=== PATIENT | male | born 1945 | race African-American/Black ===

== ENCOUNTER 2021-01-09 04:31 | Inpatient (IN) | payer OTHER ==
[2021-01-09] VITALS (54 sets, daily range): BP systolic 62–172; BP diastolic 33–87
[~2021-01-09] VITALS: Ht 182.9 cm; Wt 68.9 kg
[~2021-01-09 04:31] MED LIST: ACETAMINOPHEN325 M1 PO; BENAZEPRIL HCL40 MG; COLACE 100 MG100 MG PO; COLACE100 MG PO; DOXYCYCLINE 10100 MG PO; ENDOCET 10-6501 EACH PO; HYDROCODON-ACE1 EAC7 PO; MIRALAX17 GM PO; NORVASC 5 MG TAB5 MG PO; OXYCODONE20 MG/1 M1; OXYCONTIN10 MG PO; SENNA PO; TESSALON PERLE100 MG PO; ULTRAM 50MG TAB50 MG PO; ZPAK PO
[2021-01-09 04:59] LABS: BE(vivo) -5.5 mmol/L (-2 to +3); HCO3 20.1 mmol/L (22.0-26.0); PCO2 39.4 mmHg (35.0-45.0); PO2 65.7 mmHg (80.0-100.0); sO2 91.6 % (92.0-98.0)
[2021-01-09 05:00] LABS: pH 7.325 (7.360-7.450)
[2021-01-09 05:06] LABS: ABSOLUTE NEUTROPHILS 16.4 thou/uL (1.4-8.2); BASOPHILS 0.6 % (0.0-2.0); EOSINOPHILS 0.3 % (0.0-3.0); HEMATOCRIT 38.6 % (42.0-52.0); HEMOGLOBIN 12.8 gm/dL (14.0-18.0); LYMPHOCYTES 11.3 % (24.0-44.0); MCHC 33.1 g/dL (28.0-37.0); MCV 87.7 fL (80.0-100.0); MONOCYTES 2.6 % (1.0-8.0); PLATELET COUNT 253 thou/uL (150-400); POLYS 85.2 % (36.0-66.0); RBC 4.39 mil/uL (4.50-6.00); RDW 18.1 % (10.5-14.5); WBC 19.3 thou/uL (4.0-11.0)
[2021-01-09 05:16] LABS: CALCIUM 8.9 mg/dL (8.5-10.1); CREATININE 0.9 mg/dL (0.7-1.3)
[2021-01-09 05:26] LABS: ALBUMIN 2.9 g/dL (3.4-5.0); TOTAL BILIRUBIN 2.2 mg/dL (0.2-1.0); TOTAL PROTEIN 7.3 g/dL (6.4-8.2)
[2021-01-09 05:41] LABS: APTT 23.6 Seconds (24.5-32.8); D-DIMER 5.76 ug/mLFEU (0.19-0.50); INR 1.1; PROTIME 11.9 Seconds (10.5-12.1)
[2021-01-09 06:24] LABS: URINE BILIRUBIN NEGATIVE (Negative); URINE BLOOD NEGATIVE (Negative); URINE CLARITY CLEAR; URINE COLOR YELLOW; URINE GLUCOSE-RANDOM* NEGATIVE (Negative); URINE KETONES NEGATIVE (Negative); URINE LEUKOCYTES-REFLEX NEGATIVE (Negative); URINE NITRITE-REFLEX NEGATIVE (Negative); URINE PROTEIN (DIPSTICK) TRACE (Negative)
[2021-01-09 07:09] LABS: BE(vivo) -2.9 mmol/L (-2 to +3); HCO3 23.2 mmol/L (22.0-26.0); PCO2 45.8 mmHg (35.0-45.0); PO2 231.4 mmHg (80.0-100.0); sO2 99.4 % (92.0-98.0)
[2021-01-09 07:10] LABS: pH 7.322 (7.360-7.450)
--- NOTE | 2021-01-09 07:36 | EKG ---
[address] [place] [address] ELECTROCARDIOGRAM REPORT Name: YISEL RASCON Room #: 170-8 ADM IN M.R.#: [id number] Admission: 01/09/21 Attend Phys: Manule Hunter MD Discharge: Date of : 43 Report #: [id number] [facility] ED Test Date: 2021-01-09 Test Time: 06:56:37 Pat Name: YISEL RASCON Department: Room: 170 Gender: M Senior Ssis Developer: STEPHANIE : 1945 Requested By: Ben Azar Order Number: [id number] MD: Jaspreet Harper Measurements Intervals [place] Rate: 103 P: 45 SD: 107 QRS: -6 QRSD: 81 T: 33 QT: 346 QTc: 453 Interpretive Statements Sinus tachycardia Probable left atrial enlargement Abnormal R-wave progression, early transition Borderline T wave abnormalities Baseline wander in lead(s) V3 Compared to ECG 04/02/2015 23:16:28 Sinus rhythm no longer present T-wave abnormality still present Electronically Signed On 01-09-2021 7:35:55 CDT by Jaspreet Harper [email or web address] <ELECTRONICALLY SIGNED> By: Jaspreet Harper MD, FAC 01/09/21 0735 [id number] Jaspreet Harper MD, [facility] /EPI
[2021-01-09 09:49] LABS: CALCIUM 8.3 mg/dL (8.5-10.1); CREATININE 0.8 mg/dL (0.7-1.3); POTASSIUM 4.3 mmol/L (3.5-5.1)
--- NOTE | 2021-01-09 12:53 | NUR ---
VAT CONSULTED FOR CVL PLACEMENT. 6 FR LEFT IJ TL JACC PLACED. ALL LUMENS FLUSH AND RETURN BLOOD. PT INTUBATED/SEDATED, BUT TOLERATED WELL. LOT NUMBER [id number]. AWAITING CXR FOR TIP LOCATION CONFIRMATION.
--- NOTE | 2021-01-09 13:21 | 2DMMODE ---
[facility] [place] [address] 2 D/M-MODE ECHOCARDIOGRAM Name: YISEL RASCON Room #: 247-P ADM IN M.R.#: [id number] Admission: 01/09/21 Attend Phys: Dario Coley MD Discharge: Date of : 43 Report #: [id number] THIS REPORT FOR: cc: [facility] - Clinic physician unknown [facility] - Clinic physician unknown Felipe Suazo MD ~ APPROVED REPORT Study performed: 01/09/2021 11:37:09 EXAM: Comprehensive 2D, Doppler, and color-flow Echocardiogram Patient Location: ICU Room #: 247 Status: routine BSA: 1.91 HR: 85 bpm BP: 75/41 mmHg Rhythm: NSR Other Information Study Quality: Adequate Indications Dyspnea 2D Dimensions IVC: 16.00 mm Volumes Left Atrial Volume (Systole) Single Plane 4CH: 41.02 mL Single Plane 2CH: 22.92 mL LA ESV Index: 18.00 mL/m2 Aortic Valve AoV Peak Seymour.: 1.69 m/s AO Peak Gr.: 11.40 mmHg LVOT Max P.22 mmHg LVOT Max V: 1.14 m/s AI Vmax: 3.64 m/s AI Potter: 1.86 m/s2 AI PHT: 569.26 ms Mitral Valve E/A Ratio: 0.7 MV Decel. Time: 393.14 ms [facility] [address] [place] [address] 2 D/M-MODE ECHOCARDIOGRAM Name: YISEL RASCON Room #: 247-P ADM IN M.R.#: [id number] Admission: 01/09/21 Attend Phys: Dario Coley MD Discharge: Date of : 43 Report #: [id number] MV E Max Seymour.: 0.41 m/s MV A Seymour.: 0.61 m/s MV PHT: 114.01 ms IVRT: 133.79 ms Pulmonary Valve PV Peak Seymour.: 0.92 m/s PV Peak Gr.: 3.40 mmHg Pulmonary Vein P Vein S: 0.33 m/s P Vein A: 0.36 m/s P Vein D: 0.31 m/s P Vein A Dur.: 143.0 msec P Vein S/D Ratio: 1.06 Tricuspid Valve TR Peak Seymour.: 4.03 m/s TR Peak Gr.: 64.94 mmHg PA Pressure: 75.00 mmHg Left Ventricle The left ventricle is normal size. There is normal LV segmental wall motion. Borderline concentric left ventricular hypertrophy. The left ventricular systolic function is normal. The left ventricular ejection fraction is within the normal range. LVEF is 60-65%. Grade I - abnormal relaxation pattern. Right Ventricle The right ventricle is normal size. The right ventricular systolic function is normal. Atria The left atrium size is normal. The right atrium size is normal. Aortic Valve The aortic valve is normal in structure. Mild to moderate aortic regurgitation. There is no aortic valvular stenosis. Mitral Valve The mitral valve is normal in structure. Trace mitral regurgitation. No evidence of mitral valve stenosis. Tricuspid Valve The tricuspid valve is normal in structure. There is mild tricuspid regurgitation. Estimated PAP 75 mmHg. There is severe pulmonary hypertension. [facility] [address] [place] [address] 2 D/M-MODE ECHOCARDIOGRAM Name: YISEL RASCON Room #: 247-P [facility] IN [facility].#: [id number] Admission: 01/09/21 Attend Phys: Dario Coley MD Discharge: Date of : 43 Report #: [id number] Pulmonic Valve The pulmonary valve is normal in structure. There is no pulmonic valvular regurgitation. Great Vessels The aortic root is normal in size. IVC is normal in size and collapses <50% with inspiration. Pericardium There is no pericardial effusion. <Conclusion> The left ventricle is normal size. The left ventricular systolic function is normal. Grade I - abnormal relaxation pattern. The right ventricle is normal size. The left atrium size is normal. Mild to moderate aortic regurgitation. Trace mitral regurgitation. There is mild tricuspid regurgitation. Estimated PAP 75 mmHg. There is severe pulmonary hypertension. <ELECTRONICALLY SIGNED> By: Felipe Suazo MD 01/09/21 1321 132 1321 Felipe Suazo MD /[place]
--- NOTE | 2021-01-09 17:45 | NUR ---
RADIOLOGY REPORT LEFT IJ TIP OVERLIES BRACHIOCEPHALIC. WHEN THIS RN IN ROOM EARLIER, COULD NOT TURN HEAD LEFT TO ASSESS RIGHT. PT RESISTED. VERY STRONG. ATTEMPTED RIGHT BRACHIAL PICC. UNABLE TO THREAD CORRECTLY. UNABLE TO VISUALIZE PEAKED P WAVES AND NO BLOOD RETURN UNLESS PULLED BACK 4CM. TAYLOR RN HAS BEEN TITRATING NOREPI AND TURNED OFF. DID NOT HAVE ML KIT ON US CART. LEFT FOREARM PIV STARTED, DOCUMENTED.
[2021-01-10] VITALS (62 sets, daily range): BP systolic 82–157; BP diastolic 48–76
--- NOTE | 2021-01-10 01:48 | NUR ---
ASSUMED CARE AT 1900. PT AFEBRILE, WAKES UP EASILY THROUGH SEDATION AGITATED BUT NOT FOLLOWING COMMANDS, RELAXES ONCE NO LONGER STIMULATED. SMALL DOSE LEVO GTT INFUSING, VERSED AND FENTANYL FOR VENT MANAGEMENT. REPORT GIVEN ON PT AT 0100, PT IN STABLE CONDITION AT HAND OFF.
[2021-01-10 04:58] LABS: BASOPHILS 0.3 % (0.0-2.0); HEMATOCRIT 34.1 % (42.0-52.0); HEMOGLOBIN 11.1 gm/dL (14.0-18.0); LYMPHOCYTES 8.7 % (24.0-44.0); MCH 28.9 pg (26.0-34.0); MCHC 32.6 g/dL (28.0-37.0); MCV 88.7 fL (80.0-100.0); MONOCYTES 1.8 % (1.0-8.0); POLYS 89.2 % (36.0-66.0); RBC 3.85 mil/uL (4.50-6.00); RDW 17.5 % (10.5-14.5); WBC 6.7 thou/uL (4.0-11.0)
--- NOTE | 2021-01-10 05:16 | HC ---
[facility] [place] [address] [place] [address] CONSULTATION Name: YISEL RASCON Room #: 247-P ADM IN M.R.#: [id number] Admission: 01/09/21 Attend Phys: Dario Coley MD Discharge: Date of : 43 Report #: [id number] THIS REPORT FOR: cc: [facility] - Clinic physician unknown [facility] - Clinic physician unknown Issac Trevino MD ~ DATE OF SERVICE: 01/09/2021 INFECTIOUS DISEASE CONSULTATION ATTENDING PHYSICIAN: Dr. Coley. REASON FOR EVALUATION: Severe pneumonitis complicated by respiratory failure. HISTORY OF PRESENT ILLNESS: Chart was reviewed. The patient was examined. A 75-year-old gentleman who is sedated and maintained on ventilatory support at this point. History obtained from the hospital record. Apparently he was recently hospitalized with pneumonia, discharged within the last few days, had developed acute worsening in his dyspnea as well as some chest pain overnight, was brought initially required CPAP. Subsequently, short period of time, was intubated. Initial ABG: pH 7.325, pCO2 of 39.4, pO2 of 65.7, is on 100%, and respiratory rate of 47. Initial white count was elevated at 19.3. Lactic acid 4.0, subsequently improved to 1.5. CT of the abdomen and pelvis, chest former was noted a thickened bladder, the latter showed diffuse pneumonitis. No evidence of pulmonary embolus. Urinalysis was generally unremarkable as well. Due to the severity of his illness, he was initiated on empiric antibiotics with cefepime, Levaquin with dose of Zosyn as well. He is not responsive at this point, undergoing echo evaluation, has required some low dose pressor support as well. ALLERGIES: LISTED TO TYLENOL. CURRENT MEDICINES: Include Levaquin, methylprednisolone, Zosyn, norepinephrine, enoxaparin, famotidine. PAST MEDICAL HISTORY: History of hepatitis C, renal lithiasis, recent pneumonia. SOCIAL HISTORY: Former smoker, past ethanol, no illicit drug use. FAMILY HISTORY: Noncontributory. REVIEW OF SYSTEMS: Not obtainable. PHYSICAL EXAMINATION: GENERAL: He appears chronically ill, undernourished. He is sedated, continue [facility] [address] [place] [address] CONSULTATION Name: YISEL RASCON Room #: 247-P [facility] IN M.R.#: [id number] Admission: 01/09/21 Attend Phys: Dario Coley MD Discharge: Date of : 43 Report #: [id number] on dialysis port in a supine position. ET and OG tube in place. VITAL SIGNS: Temperature 98.1, pulse 99, respirations 24, blood pressure 105/59. SKIN: Warm, dry. HEENT: Normocephalic. LUNGS: Scattered coarse breath sounds. HEART: Borderline tachycardic, it is regular, do not appreciate a murmur. ABDOMEN: Taut distended, somewhat firm. He does react perhaps with some grimacing. GENITOURINARY AND RECTAL: Deferred. LABORATORY DATA: Electrolytes: Sodium 135, potassium 4.3, chloride 104, bicarbonate is 22, anion gap of 9, BUN and creatinine 16 and 0.8. Lactic acid 1.5. CT abdomen and pelvis showed diffuse thickened bladder wall. CT of the chest showed no evidence of PE, interstitial fibrosis and superimposed infiltrates, question of pneumonitis versus edema. Most recent ABG: pH 7.322, pCO2 of 45.8, pO2 of 231.4, FiO2 of 100%. Urinalysis was unremarkable. Procalcitonin 0.36. CRP elevated at 259.2. Coronavirus testing was negative. ProBNP of 1185. Liver functions: AST of 41, ALT of 67. Albumin 2.9. ASSESSMENT AND PLAN: Severe pneumonitis complicated by respiratory failure in a patient that was previously hospitalized with pneumonia, certainly at risk for aspiration. I suspect does have some GI related signs and symptoms, although the imaging was otherwise unremarkable. We will continue combination therapy with Levaquin and Zosyn at this point. Await culture results. Try to collect a sputum. We will do some urinary antigens, also MRSA surveillance given his recent hospitalization. At this point, he is oxygenating reasonably well. Unclear if he has underlying issues that certainly could contribute to his worsening clinical picture. <ELECTRONICALLY SIGNED> By: Issac Trevino MD 01/10/21 0516 [id number] Issac Trevino MD /nt
[2021-01-10 05:19] LABS: CALCIUM 8.5 mg/dL (8.5-10.1); CREATININE 0.8 mg/dL (0.7-1.3)
[2021-01-10 05:20] LABS: PLATELET COUNT 175 thou/uL (150-400)
--- NOTE | 2021-01-10 07:00 | NUR ---
Assumed patient care at [place]. Oxygenation optimal with current vent settings, Saturation 100%. Weaned off Levo at 0100. Fentanyl and Versed for sedation. Conitunes need for bilateral wrists restraints to maintain lines and tubes. Afebrile. BP stable off Levo.
[2021-01-10 08:55] LABS: CALCIUM 8.5 mg/dL (8.5-10.1); CREATININE 0.8 mg/dL (0.7-1.3); POTASSIUM 4.5 mmol/L (3.5-5.1)
--- NOTE | 2021-01-10 12:51 | NUR ---
CENTRAL AND PICC LINE ATTEMPTS UNSUCCESSFUL 01/09. A RIGHT TRIPLE LUMEN POWER PICC PLACED TODAY PER HOSPITAL POLICY. THE LINE WAS TRIMMED TO 40CM AND ADVANCED WITHOUT DIFFICULTY. THE LINE WAS CONFIRMED USING SHERLOCK 3CG AND RELEASED FOR USE
[2021-01-10 14:01] LABS: HCO3 24.7 mmol/L (22.0-26.0); PCO2 45.4 mmHg (35.0-45.0); PO2 63.2 mmHg (80.0-100.0); pH 7.354 (7.360-7.450); sO2 91.1 % (92.0-98.0)
--- NOTE | 2021-01-10 15:07 | NUR ---
1507HRS - PT'S SISTER CALLED WITH CODE. UPDATED HER ON PT CONDITION AND STATUS. REPORTED V/S AND VENT SETTING.
--- NOTE | 2021-01-10 19:13 | NUR ---
[id number] - LADY AT ICU FRONT DOOR CLAIM TO BE PT'S (27 YEARS ) . REPORTED THAT SHE FLEW IN FROM [place] AND RETRIEVED PT'S STOLEN CAR AND WANTED TO SEE THE PT. PT WAS TOLD TOLD THAT VISITATION HOURS IS OVER AT 6PM AND THAT HER INFORMATION IS NOT ON OUR RECORD A PERSON OF CONTACT. NO PT INFORMATION WAS GIVEN..
[2021-01-11] VITALS (41 sets, daily range): BP systolic 99–160; BP diastolic 54–75
[2021-01-11 05:04] LABS: BE(vivo) -2.4 mmol/L (-2 to +3); HCO3 23.3 mmol/L (22.0-26.0); PO2 83.2 mmHg (80.0-100.0); pH 7.342 (7.360-7.450); sO2 95.6 % (92.0-98.0)
[2021-01-11 05:39] LABS: ABSOLUTE NEUTROPHILS 8.5 thou/uL (1.4-8.2); BASOPHILS 0.1 % (0.0-2.0); HEMATOCRIT 30.9 % (42.0-52.0); HEMOGLOBIN 10.2 gm/dL (14.0-18.0); LYMPHOCYTES 6.3 % (24.0-44.0); MCH 29.2 pg (26.0-34.0); MCHC 33.2 g/dL (28.0-37.0); MONOCYTES 2.3 % (1.0-8.0); PLATELET COUNT 231 thou/uL (150-400); POLYS 91.3 % (36.0-66.0); RBC 3.51 mil/uL (4.50-6.00); RDW 18.1 % (10.5-14.5); WBC 9.3 thou/uL (4.0-11.0)
[2021-01-11 06:46] LABS: CALCIUM 8.4 mg/dL (8.5-10.1); CREATININE 0.7 mg/dL (0.7-1.3); POTASSIUM 4.2 mmol/L (3.5-5.1); TOTAL BILIRUBIN 0.9 mg/dL (0.2-1.0); TOTAL PROTEIN 5.8 g/dL (6.4-8.2)
[2021-01-11 09:03] LABS: CALCIUM 8.1 mg/dL (8.5-10.1); CREATININE 0.7 mg/dL (0.7-1.3)
--- NOTE | 2021-01-11 12:38 | NUR ---
ATTEMPTED TO DO A CPAP TRIAL TODAY ON THE PATIENT AT 1210, PT LASTED APPROX 10 MINS BEFORE HIS RESPIRATORY RATE INCREASED INTO THE MID 30'S-40S. PT PLACED BACK ON ORGINAL VENT SETTINGS. WILL CONTINUE TO MONITOR FOR S/S PAIN, TITRATION OF BOTH VENTIALATOR AND SEDATION THROUGHOUT THE DAY. WILL FOLLOW POC.
--- NOTE | 2021-01-11 13:23 | NUR ---
PERSON BY THE NAME OF JILL PAULSON CALLED STATED THAT SHE WAS SISTER OF THE PATIENT, CALLERS NAME IS NOT ON THE AUTHORIZED CONTACT LIST NOR DPOA LIST. WHEN LOOKING AT PHYSICIAN FACE SHEET, EMERGY CONTACT IS LISTED MARY ALEXANDRE [phone] WHO IS NOT A BLOOD RELATIVE BUT A FRIEND PER CALLER JILL PT'S SUPPOSED FAMILY MEMBERS THAT SHOULD HAVE ACCESS IS ANGEL LOVE, DAUGHTER RANCHO RASCON, SON NONE OF THESE PEOPLE ARE ON THE CONTACT LIST, RN CANNOT PROVIDE INFORMATION TO JILL DUE TO HIPPA, WILL HAVE TO DEFER THIS COMPLICATION TO THE VALUE ANALYSIS COORDINATOR AT THE EARLIEST TIME
--- NOTE | 2021-01-11 17:50 | NUR ---
PT DID NOT TOLERATE CPAP TRIAL WELL TODAY, ONLY LASTING 10MINS BEFORE HAVING TO BE PLACED BACK ON THE ORIGINAL VENT SETTINGS. PT REMAINS AGITATED AT VARIOUS TIMES ATTEMPTING TO PULL AT LINES AND REMOVE ET TUBE. PT IS ABLE TO MOUTH "THAT HE WANTS THE TUBE OUT". PT REMAINS RESTRAINED UNTIL ABLE TO FOLLOW COMMANDS. PT FENTANYL AND VERSED TITRATED DOWN AND PRECEDEX HAS BEEN STARTED TO HELP TO AGITATION. GOAL IS TO TRY CPAP TRIAL AGAIN TOMORROW. WILL CONTINUE TO FOLLOW POC.
[2021-01-12] VITALS (48 sets, daily range): BP systolic 103–172; BP diastolic 49–93
--- NOTE | 2021-01-12 00:32 | NUR ---
ASSUMED CARE AT 1900. HR NOTED TO BE TRENDING RAMIRO OT 40'S, DECREASED PRECEDEX GTT MULTIPLE TIMES, HR CONTINUED TO DROP IN UPPER 30'S. PT DIFFICULT TO AROUSE, AWAKENS TO PAINFUL STIMULI, THEN OVERBREATHES VENT IN 40'S; LASTS 1-2 MINUTES THEN BACK TO VERY DROWSY STATE AND LOW HR. 2330-SPOKE TO DR. PIERRE, OKAY'D STOPPING PRECEDEX AND STARTING PROPOFOL. LOW DOSE PROPOFOL STARTED, HR CONTINUED TO BE UPPER 30'S; STOPPED ALL SEDATION FOR ABOUT 15 MINUTES, THEN STILL REQUIRED PAINFUL STIMULI TO ROUSE AND BRING HR TO 70'S. GUMMING AT VENT, RR 40, LOW TIDAL VOLUMES. SEDATION RESUMED AND AFTER SEVERAL MINUTES PT CALM, AND AGAIN HR 30'S. 0030-SPOKE TO DR. PIERRE AGAIN, OBTAINED ORDER FOR DOPAMINE GTT. ALSO INFORMED THAT RT HAD DECREASED Vt TO 450, WHICH IMPROVED HIS PEAK AIRWAY PRESSURE. WILL CONTINUE TO MONITOR.
[2021-01-12 04:21] LABS: BE(vivo) -2.3 mmol/L (-2 to +3); HCO3 23.1 mmol/L (22.0-26.0); PCO2 41.9 mmHg (35.0-45.0); PO2 93.5 mmHg (80.0-100.0); pH 7.359 (7.360-7.450); sO2 96.9 % (92.0-98.0)
[2021-01-12 05:29] LABS: ABSOLUTE NEUTROPHILS 7.8 thou/uL (1.4-8.2); HEMATOCRIT 32.9 % (42.0-52.0); MCH 29.1 pg (26.0-34.0); MCHC 33.3 g/dL (28.0-37.0); MCV 87.2 fL (80.0-100.0); MONOCYTES 2.6 % (1.0-8.0); PLATELET COUNT 247 thou/uL (150-400); POLYS 94.4 % (36.0-66.0); RBC 3.77 mil/uL (4.50-6.00); RDW 18.2 % (10.5-14.5); WBC 8.3 thou/uL (4.0-11.0)
[2021-01-12 05:52] LABS: ALBUMIN 2.7 g/dL (3.4-5.0); CALCIUM 8.9 mg/dL (8.5-10.1); CREATININE 0.7 mg/dL (0.7-1.3); POTASSIUM 3.6 mmol/L (3.5-5.1); TOTAL BILIRUBIN 1.2 mg/dL (0.2-1.0); TOTAL PROTEIN 6.3 g/dL (6.4-8.2)
--- NOTE | 2021-01-12 14:09 | NUR ---
Chart review, DX Resp Failure. On vent, nutritional support. Bedside nurse requested to see if get primary contact. He has 3 friends listed and then over the weekend, sister called, ex-( of 27years), and other family asking for information. Cm spoke with hyun andrade, sister via phone call # [phone]. Education on dcp, primary person to contact. She will be the main contact till ozzie can voice someone austyn or his son freddy. Prior to hospital he made trip to his sister in october and she was surspired how much help he was needing with stair and mobility. Sister lives in [facility]. his son freddy lives in the area but works out of state. No longer drives vehicle. Son assist with running errand and driving him places if needed or friend. Ozzie lives alone in appartment, few steps to his appartment. Independent when feeling ok. Manage own medication. he was [facility] then just recently discharged from [facility] 1 1/2 days prior to coming to [facility]. Will cont following as needed for dc needs.
--- NOTE | 2021-01-12 14:21 | NUR ---
CPAP Trial performed by RT, patient respiratory rate was 30's-43 bpm max. Swithced back to previous ventilator settings. Will inform critical care physician. Patient had a 12 beat run of vtach while Dr. Petersen was here, orders received, labs sent. Will continue to monitor.
[2021-01-12 14:54] LABS: MAGNESIUM 2.2 mg/dL (1.8-2.4)
[2021-01-13] VITALS (44 sets, daily range): BP systolic 105–174; BP diastolic 54–87
[2021-01-13 05:31] LABS: HEMATOCRIT 30.4 % (42.0-52.0); HEMOGLOBIN 10.1 gm/dL (14.0-18.0); MCH 29.1 pg (26.0-34.0); MCHC 33.3 g/dL (28.0-37.0); MCV 87.5 fL (80.0-100.0); RBC 3.48 mil/uL (4.50-6.00); WBC 8.9 thou/uL (4.0-11.0)
[2021-01-13 06:14] LABS: CALCIUM 8.5 mg/dL (8.5-10.1); CREATININE 0.7 mg/dL (0.7-1.3)
[2021-01-13 07:52] LABS: BE(vivo) 2.1 mmol/L (-2 to +3); HCO3 27.1 mmol/L (22.0-26.0); PCO2 43.9 mmHg (35.0-45.0); PO2 81.2 mmHg (80.0-100.0); pH 7.408 (7.360-7.450)
[2021-01-14] VITALS (30 sets, daily range): BP systolic 113–225; BP diastolic 51–92
--- NOTE | 2021-01-14 05:16 | NUR ---
PT REMAIN MODERATELY SEDATED, WHEN SEDATION IS TITRATED LOWER, PT ATTEMPTS TO EXTUBATE HIMSELF AND CONSTANTLY MOVES LEFT ARM TOWARDS ETT. RIGHT UPPER AND LOWER EXREMITY DOESN'T MOVE MUCH BUT LAST NIGHT PT DID SQUEEZE FINGERS. PT HAD HIGH RESIDUALS FROM TF. 350 AT 2000 AND 550 AT 0600. TF IS ON HOLD UNTIL 0800 AM. GASTRIC CONTENTS WAS RETURNED VIA OG TUBE. VENT SETTINGS UNCHANGED DURING THE NIGHT, FIO3 @ 30% AFEBRILE. SR-SB PER MONITOR. UO ADEQUATE, NO BM. POOR PROGRESS TOWARDS DC GOALS. WILL CONTINUE TO MONITOR.
[2021-01-14 05:24] LABS: HEMATOCRIT 34.2 % (42.0-52.0); HEMOGLOBIN 11.3 gm/dL (14.0-18.0); MCH 28.7 pg (26.0-34.0); MCV 86.8 fL (80.0-100.0); RBC 3.94 mil/uL (4.50-6.00)
[2021-01-14 05:36] LABS: CREATININE 0.7 mg/dL (0.7-1.3); POTASSIUM 3.6 mmol/L (3.5-5.1)
--- NOTE | 2021-01-14 16:41 | NUR ---
ON THE VENT WITH LIGHT SEDATION AND WEANING DOWN SEDATION TOLERATED. VITALS STABLE, HYPERTNESIVE AND PRN ANTIHYPERTENSIVES ORDERED. PATIENT OCCASIONALLY OPENS EYES AND NODS TO Y/N QNS. NO DISTRESS NOTED. CPAP TRIAL EARLIER TODAY, PATIENT BECAME TACHYPNIC. NO FAMILY AT THE BEDSIDE. TUBEFEEDING PER OGT WITH HIGH RESIDUALS SO NOT AT GOAL YET. WILL CONTINUE WITH POC.
[2021-01-15] VITALS (23 sets, daily range): BP systolic 121–182; BP diastolic 56–79
[2021-01-15 05:32] LABS: HEMATOCRIT 35.3 % (42.0-52.0); HEMOGLOBIN 11.6 gm/dL (14.0-18.0); MCH 28.4 pg (26.0-34.0); MCHC 32.7 g/dL (28.0-37.0); MCV 86.8 fL (80.0-100.0); RBC 4.07 mil/uL (4.50-6.00); RDW 18.1 % (10.5-14.5); WBC 10.5 thou/uL (4.0-11.0)
[2021-01-15 05:55] LABS: CALCIUM 8.7 mg/dL (8.5-10.1); CREATININE 0.6 mg/dL (0.7-1.3); POTASSIUM 3.4 mmol/L (3.5-5.1)
--- NOTE | 2021-01-15 06:35 | NUR ---
UNABLE TO ADVANCE TUBE FEED RATE DUE TO ISSUES WITH HIGH RESIDUAL OVERNIGHT. PT NODS HEAD APPROPRIATELY BUT DOES NOT CONSISTENTLY FOLLOW COMMANDS. ADEQUATE URINE OUTPUT.
[2021-01-15 12:50] LABS: BE(vivo) 7.4 mmol/L (-2 to +3); HCO3 31.4 mmol/L (22.0-26.0); PO2 80.5 mmHg (80.0-100.0); pH 7.492 (7.360-7.450); sO2 96.6 % (92.0-98.0)
--- NOTE | 2021-01-15 14:00 | NUR ---
JENNIFER CALLS FOR INFORMATION BUT IS NOT ON THE LIST. SHE IS INFORMED THE PT. IS STABLE. HER NUMBER IS [phone].
--- NOTE | 2021-01-15 15:26 | NUR ---
PT HAS SEDATION VACATON FROM 1140 TO 1520 WITH A CPAP WEANING TRIAL. HE ALERT AND AWAKE DURING THIS TIME. PT IS FOLLOWING COMMANDS, HAS STABLE VITAL SIGNS, SP02 > 93% THROUGHOUT, AND PULLING ADEQUATE TIDAL VOLUME. HE HAS NOT BEEN TACHYPNEIC.
--- NOTE | 2021-01-15 15:54 | NUR ---
Discussed during los and unit rounds. Cpap trial and sedation vac. vent and nutritional support. will cont following as needed for dc needs. No anticipated dc over the weekend.
--- NOTE | 2021-01-15 19:04 | NUR ---
PT EXTUBATED AT 1707 WITH RT AND THIS RN AT THE BEDSIDE. ON 4LNC, SATTING >93% AND AND RR IS 22. HE HAS RICK AND VSS. PT CAN SPEAK BUT IS HOARSE. HE IS REORIENTED TO PLACE AND TIME. THERE IS HOARSENESS NOTED BUT NO APPARENT VOCAL CORD DAMAGE. PT IS STABLE AND CHEWING ON ICE CHIPS.
[2021-01-16] VITALS (19 sets, daily range): BP systolic 107–150; BP diastolic 54–71
[2021-01-16 04:57] LABS: HEMOGLOBIN 10.6 gm/dL (14.0-18.0); MCH 28.6 pg (26.0-34.0); MCHC 33.1 g/dL (28.0-37.0); MCV 86.2 fL (80.0-100.0); RBC 3.72 mil/uL (4.50-6.00); RDW 18.6 % (10.5-14.5)
[2021-01-16 06:10] LABS: CALCIUM 8.5 mg/dL (8.5-10.1); CREATININE 0.6 mg/dL (0.7-1.3); POTASSIUM 3.4 mmol/L (3.5-5.1)
--- NOTE | 2021-01-16 15:17 | NUR ---
Chart review. discussed during los and unit rounds. extubated. On oxygen 3L/nc. [facility]. Received phone call from Vance Beltran # [phone], we are but still , i live in [place], but was here staying with him after he [facility], i am the one who called 911 when he go soa at home. He has home o2 but still soa. I will get you his DPOA and you can give his sister hyun my number. Cm also asked if could get copy of [employer] license?. I am trying to get that information as well per eugenie. thank you for calling me back per eugenie-. Passed on information to beside nurse. No anticipated dc over the weekend, will cont following as needed for dc needs. Spoke with hyun, sister via pone call, she passed on she is the DPOA for medical and it is ok to give eugenie information when she call, they were when they were in nursing home, not sure how she has DPOA health when i do, but i will call her and fax over DPOA that was done [place] [facility]. Thank you for calling, his son freddy is on his way back home, his car is missing and his rent is due and eugenie has his wallet and this sticky situation. Thank you again per hyun. Will cont following as needed for dc needs.
--- NOTE | 2021-01-16 17:26 | NUR ---
ASSUMED PATIENT CARE AT 0700. A/ 0 X3. ON 2L/NC. DRY COUGH. DENIES PAIN. POOR APPETITE. NEEDS ASSISTED TO EAT. VSS. AFEBRILE. TRANSFER PATIENT TO [facility] AT 1710. CALLED TO [facility]. WILL KEEP MONITOR.
--- NOTE | 2021-01-16 18:18 | NUR ---
TOOK OVER CARE FOR THIS PATIENT AT 1400 TRANSFERRED FROM ICU. PATIENT ON 2 L OXYGEN NASAL CANNULA WHICH IS BASELINE. PATIENT DENIES SHORTNESS OF AIR. PATIENT DENIES ANY PAIN AT THIS TIME. PATIENT SITTING UP EATING DINNER; REQUIRES ASSISTANCE TO EAT. PATIENT REPORTS POOR APPETITE. FALL PRECAUTIONS IN PLACE AND CALL LIGHT WITHIN REACH. PATIENT WANTED TO CALL EX-, JENNIFER; ATTEMPTED TO CALL JENNIFER VIA THE NUMBER PROVIDED IN THE CHART BUT IT WENT TO A [employer]. INFORMED CASE MANAGEMENT REGARDING THE EX-WIFES NUMBER AND THEY WILL LOOK INTO IT. PATIENT DENIES ANY OTHER NEEDS.
--- NOTE | 2021-01-17 00:58 | NUR ---
PT REMAIN ALERT AND ORIENT TIMES TWO. IS AWARE THAT HE IS IN THE HOSPITAL BUT THINKS HE IS AT [facility] (NORMALLY DOES GO THERE). FORGETFUL AT TIMES. VSS, AFEBRILE. DOES HAVE A NON-PRODUCTIVE COUGH, PT WAS EXTUBATED TODAY. NAJERA PATENT. NO BM THIS SHIFT. RIGHT UA PICC C/D/I. SR PER MONITOR. SLOW PROGRESS TOWARDS DC GOALS. WILL CONTINUE TO MONITOR.
[2021-01-17 04:18] LABS: CALCIUM 8.4 mg/dL (8.5-10.1); CREATININE 0.6 mg/dL (0.7-1.3); POTASSIUM 3.3 mmol/L (3.5-5.1)
[2021-01-17 04:32] VITALS: BP 165/83
[2021-01-17 07:25] VITALS: BP 133/75
[2021-01-17 11:46] VITALS: BP 142/75
[2021-01-17 15:02] VITALS: BP 167/92
--- NOTE | 2021-01-17 17:06 | NUR ---
ASSESSMENT CHARTED - MEDS PER HAL - AURELIANO DIET AND FLUIDS. IV FLUIDS D/C THIS AM - k+ LOW - DR NOTIFIED - REPLACED. SEEN BY PHYS THERAPY PT STOOD AT THE SIDE OF THE BED. NO CO'S OF NAUSEA. PT WITH COS OF HEELS FEELING A LITTLE SORE - PLACE ON PILLOW WITH RELIEF. PT ABLE TO FEED SELF WITH SET UP ASSISTANCE. REPORT GIVEN TO ICU NURSE AT 1600 - CARE TAKEN OVER.
--- NOTE | 2021-01-17 17:47 | NUR ---
PATIENT SLOWLY PROGRESSING TOWARDS THE PLAN OF CARE.
[2021-01-17 19:25] VITALS: BP 149/71
[2021-01-18 02:03] LABS: URINE BILIRUBIN NEGATIVE (Negative); URINE BLOOD 3+ (Negative); URINE GLUCOSE-RANDOM* NEGATIVE (Negative); URINE KETONES NEGATIVE (Negative); URINE LEUKOCYTES-REFLEX NEGATIVE (Negative); URINE NITRITE-REFLEX NEGATIVE (Negative); URINE PROTEIN (DIPSTICK) TRACE (Negative)
[2021-01-18 02:04] LABS: URINE CLARITY CLOUDY; URINE COLOR RED
[2021-01-18 02:27] LABS: BACTERIA-REFLEX None Seen /HPF (None Seen); CASTS None Seen /LPF (None Seen); CRYSTALS None Seen /LPF (None Seen); MUCUS 0-3 Light strn/LPF (None Seen); SQUAMOUS None Seen /LPF (0-3); URINE RBC >20 Many /HPF (NONE SEEN); URINE WBC-REFLEX None Seen /HPF (0-5)
[2021-01-18 04:51] VITALS: BP 155/83
[2021-01-18 05:44] LABS: CALCIUM 8.4 mg/dL (8.5-10.1); CREATININE 0.6 mg/dL (0.7-1.3); POTASSIUM 3.7 mmol/L (3.5-5.1)
[2021-01-18 07:46] VITALS: BP 163/86
--- NOTE | 2021-01-18 08:06 | NUR ---
ASSUMED PT CARE AT 1900, PT IA AWAKE, ALERT AND ORIENTEDX3, SR ON TELE, DENIES PAIN OR SOA, REMAINS ON 3L NC WITH SCHEDULED BT, NAJERA NOTED WITH BLOOD TINGED URINE, IT NETWORK ADMINISTRATOR NOTIFIED, ORDERS TO HOLD LOVENOX AND NEW URINALYSIS RECEIVED; ASSESSMENTS CAHRTED, MEDS GIVEN PER JUN, NO ACUTE DISTRESS NOTED; PASSED ON REPORT TO DAY NURSE
[2021-01-18 11:32] VITALS: BP 153/73
[2021-01-18 15:23] VITALS: BP 141/72
--- NOTE | 2021-01-18 19:04 | NUR ---
ASSESSMENT CHRTED - MEDS PER JUN - NO CO'S OF PAIN OR NASUEA. AURELIANO DIET AND FLUIDS. PT UP IN THE CHAIR TODAY FROM MID MORNING UNTIL AFTER DINNER - AURELIANO WELL. SAID HE FELT BETTER AFTER BEING OUT OF THE BED. K+ 3.7 TODAY. PT STATES HE IS COMFORTABLE WITH NO CO'S AT THE PRESENT TIME.
[2021-01-18 19:49] VITALS: BP 151/90
--- NOTE | 2021-01-19 03:30 | NUR ---
DENIES PAIN.REPOSITION IN BED.TRIES TO SIT UP AT TIMES.BED ALARM ON.MONITOR SHOWS SR.POC CONTINUED.
[2021-01-19 05:45] VITALS: BP 145/82
--- NOTE | 2021-01-19 11:13 | NUR ---
chart review. discussed during los with hospitalist. Checked chart, no DPOA paperwork sent from his eugenie. Cm visited with ozzie at bedside, verified that his sister is his only DPOA and it is ok to talk with his eugenie as well. She just talks stuff, sister is the DPOA and it is ok to let eugenie know how i am doing per terrence. Will cont following as needed for dc needs.
[2021-01-19 11:42] VITALS: BP 131/73
[2021-01-19 15:44] VITALS: BP 151/70
--- NOTE | 2021-01-19 16:36 | NUR ---
Met with patient who recently dc from [facility] to home. Patient reports he is now living with his son. Discussed need for post acute care. Patient reports he really wants to return home but he will do what we think is best. 5N to eval in am. Gave patient list of post acute care. [facility]emgt following.
[2021-01-19 19:44] VITALS: BP 115/76
--- NOTE | 2021-01-19 22:55 | NUR ---
REPORT GIVEN TO OMAIRA NARVAEZ AROUND 2100.PATIENT WAS TRANSFERED TO ROOM 460 BY AIRPORT BAGGAGE SCREENER.PT STABLE.POC CONTINUED.
[2021-01-20 01:39] VITALS: BP 93/55
--- NOTE | 2021-01-20 04:37 | NUR ---
patient aox2 confused and forgetful this shift. patient on 2l of no soa or distress noted. patient calm and cooperative with meds and care. cath care done. fall precaution in place.patient in bed asleep at this time breathing regular and unlaboured.
[2021-01-20 04:41] VITALS: BP 92/60
[2021-01-20 05:30] LABS: HEMATOCRIT 31.8 % (42.0-52.0); HEMOGLOBIN 10.7 gm/dL (14.0-18.0); MCH 28.7 pg (26.0-34.0); MCHC 33.5 g/dL (28.0-37.0); MCV 85.6 fL (80.0-100.0); RBC 3.72 mil/uL (4.50-6.00); RDW 18.7 % (10.5-14.5); WBC 8.4 thou/uL (4.0-11.0)
[2021-01-20 05:50] LABS: CALCIUM 8.6 mg/dL (8.5-10.1); CREATININE 0.6 mg/dL (0.7-1.3); POTASSIUM 4.1 mmol/L (3.5-5.1)
[2021-01-20 07:40] VITALS: BP 119/71
--- NOTE | 2021-01-20 13:52 | NUR ---
ASSUMED PT CARE THIS AM. PT A&OX1, ABLE TO MAKE NEEDS KNOWN. PATIENT REPORTING NO PAIN, NUMBNESS,OR TINGLING. NAJERA CATHETER IN PLACE DRAINING WELL. PATIENT IS 2 L NASAL CANNULA. PATIENT HAS BLE EDEMA NOTED. IV PATENT, SALINE LOCKED. MEDICATION TAKEN IN APPLESAUCE WITHOUT ISSUE. PATIENT IS A MAX ASSIST OUT OF BED. FALL PRECUATIONS ARE IN PLACE, CALL LIGHT WITHIN REACH.
[2021-01-20] MEDS ORDERED: REGLAN 5 MG TAB5 MG PO (16:15)
[2021-01-20] MEDS ORDERED: ENOXAPARIN40 MG/0.1 SUBQ (16:15)
[2021-01-20] MEDS ORDERED: PREDNISONE 10 M10 M1 PO (16:15)
[2021-01-20] MEDS ORDERED: IPRAT-ALBUT 0.5-3 ML INH (16:15)
[2021-01-20] MEDS ORDERED: MIRALAX17 GM PO (16:15)
[2021-01-20] MEDS ORDERED: PEPCID20 MG PO (16:15)
--- NOTE | 2021-01-20 16:34 | NUR ---
PT TO DC TO [facility] THIS DAY. CM CALLED AND NOTIFIED HIS SISTER. SHE IS AWARE AND AGREEABLE. NO OTHER CM INTERVENTION INDICATED. CASE CLOSED.
== END 2021-01-20 18:44 | DRG 870 ==
LOC: ER 04:31 → EROBS 06:27 → ICU 06:27 → 2N 01-16 17:13 → 4W 01-19 22:15
PROVIDERS: Emergency Medicine; Hospitalist; Internal Medicine; Internal Medicine Pulmonary Disease; Nurse Practitioner; Nurse Practitioner Family; Pediatrics; ADMIT Hospitalist; ATTEND Hospitalist
PROC: 5A1955Z Respiratory Ventilation, Greater than 96 Consecutive Hours (ICD-10-PCS; principal; 2021-01-09)
PROC: 5A09357 Assistance with Respiratory Ventilation, Less than 24 Consecutive Hours, Continuous Positive Airway Pressure (ICD-10-PCS; principal; 2021-01-09)
PROC: 05HA33Z Insertion of Infusion Device into Left Brachial Vein, Percutaneous Approach (ICD-10-PCS; principal; 2021-01-09)
PROC: 05HF33Z Insertion of Infusion Device into Left Cephalic Vein, Percutaneous Approach (ICD-10-PCS; principal; 2021-01-09)
PROC: 0BH17EZ Insertion of Endotracheal Airway into Trachea, Via Natural or Artificial Opening (ICD-10-PCS; principal; 2021-01-09)
PROC: 02HV33Z Insertion of Infusion Device into Superior Vena Cava, Percutaneous Approach (ICD-10-PCS; 2021-01-10)
PROC: 5A09357 Assistance with Respiratory Ventilation, Less than 24 Consecutive Hours, Continuous Positive Airway Pressure (ICD-10-PCS; 2021-01-15)
DX: A41.9 Sepsis, unspecified organism (principal); J18.9 Pneumonia, unspecified organism; R65.21 Severe sepsis with septic shock; J96.21 Acute and chronic respiratory failure with hypoxia; G93.41 Metabolic encephalopathy; Z99.11 Dependence on respirator [ventilator] status; I50.30 Unspecified diastolic (congestive) heart failure; I42.9 Cardiomyopathy, unspecified; J44.0 Chronic obstructive pulmonary disease with (acute) lower respiratory infection; G93.1 Anoxic brain damage, not elsewhere classified; G72.81 Critical illness myopathy; J84.10 Pulmonary fibrosis, unspecified; D64.9 Anemia, unspecified; I35.1 Nonrheumatic aortic (valve) insufficiency; I11.0 Hypertensive heart disease with heart failure; I27.20 Pulmonary hypertension, unspecified; B19.20 Unspecified viral hepatitis C without hepatic coma; R74.01 Elevation of levels of liver transaminase levels; Y95 Nosocomial condition; K64.9 Unspecified hemorrhoids; Z20.822 Contact with and (suspected) exposure to COVID-19; Z68.21 Body mass index [BMI] 21.0-21.9, adult; Z23 Encounter for immunization; Z90.49 Acquired absence of other specified parts of digestive tract; Z87.442 Personal history of urinary calculi; Z86.19 Personal history of other infectious and parasitic diseases; Z88.6 Allergy status to analgesic agent; Z87.891 Personal history of nicotine dependence; Z79.899 Other long term (current) drug therapy; Z87.01 Personal history of pneumonia (recurrent)
CPT/HCPCS: 10045; 10078; 10081; 27000

== ENCOUNTER 2021-01-20 16:38 | Inpatient (IN) | payer OTHER ==
[~2021-01-20] VITALS: Ht 177.8 cm; Wt 65.3 kg
[~2021-01-20 16:38] MED LIST changes: +ENOXAPARIN40 MG/0.1 SUBQ; +IPRAT-ALBUT 0.5-3 ML INH; +PEPCID20 MG PO; +PREDNISONE 10 M10 M1 PO; +REGLAN 5 MG TAB5 MG PO
--- NOTE | 2021-01-20 17:58 | NUR ---
PT ARRIVED TO ROOM VIA BED FROM 4TH FLOOR. PT IS CHEERFUL AND JOKING. PT VS TAKEN AND OXYGEN WAS 84% ON ROOM AIR. PLACED 2L NC ON AND PT SAT UP TO 92%. PT HAS PICC LINE TO RT UPPER ARM WITH 3 PORTS. PT NEEDED TURNED TO GET OUT FROM UNDER CHAIR ALARM. PT STARTED COUGHING DRY COUGH WHEN GETTING TURNED. PT SKIN INTACT TO BUTTOCKS. PT HAS DRY SKIN TO FEET. PT HAS PHONE, NO COUNTER SUPERVISOR, WALLET, BLUE SHIRT, AND BLACK SHOES. PT STATED HIS FAMILY IS SUPPOSED TO BRING HIM A COUNTER SUPERVISOR FOR HIS PHONE. PT HAS NAJERA TO DD. PT STATED HE DIDN'T WANT TO EAT ANY DINNER HE WASN'T HUNGRY.
[2021-01-20 18:20] VITALS: BP 113/54
--- NOTE | 2021-01-21 01:09 | NUR ---
ASSUMED CARE OF PT AT 1940. PT IS A&OX4 WITH MOMENTS OF CONFUSION. IS STABLE. IS ON 2L OF O2/NC. REPORTS CHRONIC PAIN IN BILAT HANDS 10/25 THAT WORSENS WHEN MAKING A FIST & IMPROVES WHEN RELAXES. PT REPORTED THAT HE DOES NOT LIKE TAKING PAIN MEDS, BUT IF PAIN WORSENS WOULD TAKE ONE IF NEEDED. DENIES CHEST PAIN & DIFFICULTY BREATHING. HOB ELEVATED. PT HAS DRY FLAKY SKIN, SOME BRUISING FROM LOVENOX INJECTIONS IN ABDOMEN. LL LATERAL HEEL DRIED WOUND. SKIN IS INTACT. HEELS OFF LOADED. PICTURE TAKEN & IN THE CHART. CONSULT TO MO, WOUND CARE NURSE. PT IS ABLE TO TURN SELF IN BED. CONSTANTLY MOVES. SCDS IN ROOM, BUT REFUSES TO WEAR. STATES, "THEY'RE TOO TIGHT". EDUCATION PROVIDED. PT IS ON LOVENOX. ADMISSIONS INFORMATION COMPLETED. PT WAS EDUCATED & ADMISSION PACKET PROVIDED. CONSENT EXPLAINED & ARE AT BEDSIDE. DPOA TO SIGN TORROW PER PT. PT IS UP WITH MAX ASSIST OF 2, GB, WALKER. FALL PRECAUTIONS & HOURLY ROUNDING IMPLEMENTED THIS SHIFT. PT REPORTED USING ROLLER WALKER, W/C, & GRAB BARS IN HIS APPARTMENT. TAKES MEDS CRUSHED IN APPLESAUCE. HAS SUSAN 3LUMEN PICC SALINE LOCKED. PT IS CURRENTLY IN BED ASLEEP. CALL LIGHT WITHIN REACH. WILL CONTINUE TO MONITOR. LABS & VITALS REVIEWED/
[2021-01-21 06:17] LABS: HEMATOCRIT 28.7 % (42.0-52.0); HEMOGLOBIN 9.4 gm/dL (14.0-18.0); MCH 28.5 pg (26.0-34.0); MCHC 32.9 g/dL (28.0-37.0); MCV 86.6 fL (80.0-100.0); RBC 3.32 mil/uL (4.50-6.00); RDW 19.2 % (10.5-14.5); WBC 8.4 thou/uL (4.0-11.0)
[2021-01-21 06:36] LABS: CALCIUM 8.2 mg/dL (8.5-10.1); CREATININE 0.6 mg/dL (0.7-1.3); POTASSIUM 3.7 mmol/L (3.5-5.1)
[2021-01-21 07:15] VITALS: BP 109/47
--- NOTE | 2021-01-21 08:28 | NUR ---
ASSUMED CARE AT 0700. PATIENT IS ALERT AND ORIENTED X4, BUT FORGETFUL AT TIMES. PATIENT KIM'S, LAUNDRY OPERATOR WASH ROOM ARE EQUAL. LUNGS ARE COARSE, DEMINISHED, WITH A NONPRODUCTIVE COUGH. PATIENT IS ON 02 AT 2L PER N/C. PATIENT CONTINUES ON RESPIRATORY TX. ABD IS SOFT WITH BSX4. C/O BEING CONSTIPATED. PATIENT TO GET LAXATIVES TODAY. PATIENT HAS RIGHT ARM PICC. IV SITE WITHOUT REDNESS OR SWELLING. PATIENT HAS WOUND ON HIS LEFT HEEL. LEFT HEEL OFFLOADED WITH PILLOW AND PAINTED WITH BETADINE. PATIENT HAS NAJERA TO DD, DRAINING JARRETT COLORED URINE. FALL AND SAFETY PROTOCOLS IN PLACE. C/O PAIN R/T THE CATHETER. CONTINUES TO EVALED BY PT/OT/ST. WILL CONTINUE TO MONITER.
--- NOTE | 2021-01-21 08:57 | NUR ---
PATIENT CONTINUES TO C/O PAIN R/T HIS CATHETER AND HE WANTS IT OUT. PATIENT C/O COUGH, AND HAS WHITE PATCHES ON HIS TONGUE. WILMAN SITE SURVEYOR NOTIFIED. SHE WILL SEE HIM ON ROUNDS. WILL CONTINUE TO MONITER.
--- NOTE | 2021-01-21 10:39 | NUR ---
pt to xray for rt lower back and hip pain.
--- NOTE | 2021-01-21 14:43 | NUR ---
Chart review. New to acute rehab here at [facility]. He is able to make his needs know. pleasant with some confusion and forgetfulness at time. A & o x self, family and place/time. He was only out of [facility] for 1[facility]5 days and then was brought here to ed. He lives with son freddy [phone], who works outside the home with this work call he has to go on the road. His ex-/ eugenie came in from [place] to help him and then went back home to [place] when he go admitted to hospital. Sister hyun is his dpoa # [phone]. There is few steps to his apartment. Independent prior to hospital, manage own medication. Drives when feeling ok. Will cont fowing as needed for dc needs
[2021-01-21 18:26] LABS: FOLIC ACID 13.2 ng/mL (8.6-58.9)
[2021-01-21 19:21] VITALS: BP 114/67
--- NOTE | 2021-01-21 23:33 | NUR ---
PT ALERT AND ORIENTED X 4. CONFUSED AT TIMES. HAS TRIED TO URINATE IN CUP AND WATER PITCHER TONIGHT. HAD URINAL IN PLACE WHEN HE TRIED TO USE WATER PITCHER. HAS NOT VOIDED SINCE NAJERA REMOVED AT 1630. BLADDER SCAN 96 AT 1945. REFUSES TO BE BLADDER SCANNED AT THIS TIME. CONGESTED COUGH NOTED. GUIAFENISIN WITH CODEINE GIVEN ORDERED. UP TO BSC WITH MAX ASSIST X 2 AT START OF SHIFT. 02 0N AT 2L PER NC CONT. 02 SAT 98%. RIGHT PICC LINE INTACT. PT DENIES PAIN OR DISCOMFORT. BED ALARM ON FOR SAFETY. PT CHECKED ON HOURLY ROUNDS. SLEEPING AT INTERVALS.
--- NOTE | 2021-01-22 02:48 | NUR ---
PT HAS NOT VOIDED SINCE NAJERA REMOVED AT 1630. BLADDER SCAN 175 AT 0030 AND 244 AT 0200. CALLED ISMA BARGER NP AT 0245 AND ORDER RECEIVED TO SCAN AGAIN IN 4 HOURS. PT IN NO APPARENT DISCOMFORT.
[2021-01-22 08:00] VITALS: BP 100/54
--- NOTE | 2021-01-22 09:41 | NUR ---
PT SITTING WITH ST AND GOING OVER MEDICATIONS AND JOKING WITH HER ABOUT THE MEDS, PT DIDN'T SEEM LIKE HE WAS TAKING HER SERIOUSLY. PT HAS COURSE LUNG SOUNDS TO LLL. PT HAS DRY HACKY COUGH. PT DENIES ANY PAIN. PT HAS BLISTER DARK IN COLOR TO LEFT HEEL. PT TOOK MEDS WHOLE WITH WATER.
[2021-01-22 20:00] VITALS: BP 114/54
--- NOTE | 2021-01-23 05:01 | NUR ---
ASSUMED CARE AT 1900 OF 01/22. PATIENT IS A&OX4, INTERMITTENT CONFUSION NOTED. PATIENT WAS COOPERATIVE AND CALM AT START OF SHIFT, LATER IN THE EVENING PATIENT BECAME IMPULSIVE AND UNCOOPERATIVE. PATIENT SET OFF BED ALARM WHILE TRYING TO GET OUT OF BED, NURSE REMINDS PATIENT HE NEEDS TO CALL FOR ASSISTANCE WHEN HE WANTS TO GET UP FROM BED. APPEARED TO BE FURSTRATED BY THIS STATEMENT AND SCREAMED "LEAVE ME ALONE" WHILE CROSSING ARMS ACROSS CHEST. NURSE USED THERAPUTIC COMUNICATION TO PROVIDE FALL PREVENTION EDUCATION AND EXPLAIN THE IMPORTANCE OF CALLING FOR HELP FOR PATIENT'S SAFETY. PATIENT WAS GIVEN TIME TO CALM DOWN. ABOUT AN HOUR LATER, PATIENT THEN CALLED OUT BY YELLING HE NEEDS HELP TO PEE. NURSE ASSISTED PATIENT TO USE URINAL, PATIENT IS VOIDING JARRETT COLORED URINE. PATIENT HAS HAD AT LEAST 4 CONTINENT VOIDS SO FAR, MEASURING APPROX. 100CC EACH TIME. DRIBBLING NOTED IN PATIENTS BRIEF, NURSE OFFERS TO CHANGE BRIEF BUT PATIENT REFUSES TO HAVE BRIEF CHANGED. PATIENT REAPPROACHED ABOUT BRIEF CHANGING, CONTINUES TO REFUSE. PATIENT IS HEARD INTERMITTENTLY COUGHING THROUGHOUT THE NIGHT, PRN GUAIFENESIN/CODEINE ADMINISTERED WITH SOME EFFECTIVENESS. ON CONTINUOUS 2L OF O2 VIA NC. PATIENT REQUIRES CONSTANT REMINDER TO KEEP OXYGEN ON. MAXIMUM ASSIST OF 2 FOR A PIVOT TRANSFER TO W/C USING GB. FALL PRECAUTIONS IN PLACE, CALL LIGHT WITHIN REACH. WILL CONTINUE TO MONITOR.
[2021-01-23 08:00] VITALS: BP 95/51
--- NOTE | 2021-01-23 08:29 | NUR ---
ADM QUAIFENESIN WITH CODIENE 5ML PO FOR COUGH.
--- NOTE | 2021-01-23 08:32 | NUR ---
PT SITTING UP IN W/C WORKING WITH ST. PT DID TAKE MEDS THIN WITH WATER. PT LUNGS DIMINISHED TO LLL AND RHONCHI TO RLL. PT UP MAX ASSIST TO W/C OR BED. PT HAS LEFT HEEL BLISTER THAT IS INTACT WITH BETADINE PAINTED ON. PT DENIES ANY PAIN. PT HAS OXYGEN ON 2L NC. PT JOKES WITH STAFF.
--- NOTE | 2021-01-23 12:31 | NUR ---
ADM QUAIFENESIN WITH CODIENE 5ML FOR COUGH. PT SITTING UP IN CHAIR FOR LUNCH AND WORKING WITH THERAPY.
--- NOTE | 2021-01-23 13:56 | NUR ---
BPCI, cont following as needed for dc needs and weekly team meetings.
--- NOTE | 2021-01-23 17:00 | NUR ---
ADM QUAIFENESIN WITH CODIENE 5ML FOR COUGH. PT WAS WANTING TO KNOW IF HE COULD GET HIS CAR HERE. THERE WAS A CONVERSATION WITH HIS SON EARLIER ABOUT HIS CAR AND THAT HE WANTED TO HAVE HIS KEYS TO HIS CAR.
[2021-01-23 20:00] VITALS: BP 127/64
--- NOTE | 2021-01-24 04:16 | NUR ---
ASSUMED CARE AT 1900 OF 01/23. PATIENT IS A&OX4, FORGETFUL AT TIMES. REPORTED GENERALIZED PAIN, MANAGED WITH PRN TRAMADOL. PATIENT TOLERATED ORAL MEDICATIONS WHOLE ONE AT A TIME WITH THIN LIQUIDS. MAXIMUM ASSIST USING GB TO PIVOT TRANSFER TO W/C. PATIENT USES URINAL TO VOID, NURSE ASSISTED PATIENT WITH USING URINAL. JARRETT COLORED URINE NOTED. PATIENT IS ENCOURAGED TO DRINK MORE FLUIDS. ON CONTINUOUS 2L OF 02 VIA NC, LUNG SOUNDS ARE CLEAR IN UPPER LOBES AND DIMINISHED TOWARDS THE BASES. APPEARS TO BE SLEEPING DURING HOURLY ROUNDS. FALL PRECAUTIONS IN PLACE, CALL LIGHT WITHIN REACH. WILL CONTINUE TO MONITOR.
[2021-01-24 08:06] VITALS: BP 113/67
--- NOTE | 2021-01-24 12:03 | NUR ---
ASSUMED CARE AT 0700. PATIENT IS ALERT AND ORIENTED X4. PATIENT KIM'S, ACCOUNT FINANCIAL MANAGER ARE EQUAL. PATIENT IS MAX ASSIST OF 2 STAFF. LUNGS ARE DEMINISHED WITH OCCASIONAL COUGH. 02 AT 2L PER N/C. PATIENT CONTINUES ON RESPIRATORY TX. ABD IS SOFT WITH BSX4. PATIENT HAD LARGE BM. PATIENT IS VOIDING JARRETT COLORED URINE. LEFT HEEL CLEANED WITH BETADINE. FALL AND SAFETY PROTOCOLS IN PLACE. DENIES PAIN AT THIS TIME. CONTINUES TO PROGRESS SLOWLY TOWARDS D/C GOALS. WILL CONTINUE TO MONITER.
[2021-01-24 20:00] VITALS: BP 100/57
--- NOTE | 2021-01-25 03:28 | NUR ---
ASSUMED CARE AT 1900 OF 01/24. PATIENT IS A&OX3, INTERMITTENT CONFUSION NOTED. PATIENT IS REORIENTED TO TIME, AND IS EASILY REDIRECTED. REQUESTED FOR PRN GUAFENESIN/CODEINE TO ALLEVIATE PERSISTENT NON-PRODUCTIVE COUGH, WHICH WAS ADMINISTERED WITH SOME EFFECTIVENESS. ON CONTINUOUS 2L OF O2 VIA NC. LUNG SOUNDS ARE CLEAR IN UPPER LOBES AND DIMINISHED IN LOWER LOBES BILATERALLY. ASSISTED WITH REPOSITIONING, PRAFO BOOTS ON WHILE IN BED. ASSISTED WITH USING URINAL TO VOID JARRETT COLORED URINE. INCONTINENT OF BLADDER ONCE DURING SHIFT AND REQURED FULL LINEN CHANGE. CALL LIGHT USAGE EDUCATION REINFORCED. FALL PRECAUTIONS IN PLACE, CALL LIGHT WITHIN REACH. WILL CONTINUE TO MONITOR.
[2021-01-25 08:30] VITALS: BP 111/63
--- NOTE | 2021-01-25 09:35 | NUR ---
PT SITTING UP IN BED THIS AM. PT DENIES ANY PAIN AT THIS TIME. PT HAS OXYGEN ON 2L NC. PT HAS RHONCHI TO BASES. PT HAS DRY COUGH. PT IS INCON AT TIMES AFTER USING URINAL. PT CAR KEYS ARE IN THE ROOM.
--- NOTE | 2021-01-25 09:42 | NUR ---
ADM QUAIFENESIN WITH CODIENE 5ML PO FOR COUGH, ALSO ADM TRAMADOL 50MG PO FOR PAIN TO LEFT SIDE OF 7 ON 1-10 SCALE.
--- NOTE | 2021-01-25 12:00 | NUR ---
PT NEPHEW HERE AND PT UP TO W/C, PT STATED HE WANTED TO GET OUT AND DO SOMETHING, ASKED PT WHERE IS HE GOING, PT STATED ACROSS THE STRE[address]. SEEMS WHEN FAMILY IS HERE AND THEY ARE ABOUT TO LEAVE HE WANTS TO LEAVE WITH THEM. TOLD PT THERE WAS NOT STAFF TO TAKE HIM OUTSIDE AT THIS TIME. PT GOT BACK TO BED BY FAMILY ASSISTING. PT IS IMPULSIVE AND DOES NOT KNOW HIS LIMITATIONS.
--- NOTE | 2021-01-25 16:11 | NUR ---
ADM QUIFENESIN WITH CODEINE 5ML FOR COUGH. PT HAS BEEN USING HIS URINAL AND VOIDING 100ML. PT COUGH SEEMS BETTER TODAY.
--- NOTE | 2021-01-25 16:36 | NUR ---
PT HAS BEEN WANTING POTATO CHIPS TODAY. WILL HAVE TO ASSESS WITH ST TUESDAY IF ABLE TO EAT CHIPS.
[2021-01-25 20:15] VITALS: BP 107/50
--- NOTE | 2021-01-26 00:02 | NUR ---
PT ALERT AND ORIENTED X 1, CONFUSED. YELLS OUT AT TIMES. INCONT OF URINE. 02 ON AT 2L PER NC CONT. PT TOOK HS MEDS WITH WATER WITHOUT DIFFICULTY. PT REFUSED MIRALAX AND COLACE AT HS. OCCASIONAL COUGH NOTED. PT DENIES PAIN OR DISCOMFORT. BED ALARM ON FOR SAFETY. PT APPEARS TO BE SLEEPING ON HOURLY ROUNDS.
--- NOTE | 2021-01-26 07:10 | NUR ---
ASSUME CARE 1900. PT/VITALS STABLE. INTERMITTENT PAIN INDICATED. POOR TOLERANCE TO ACTIVTIY. ASSESSMETN CHARTED. MODERATE PROGRESS TO ACTIVITY. PT ON 2LNC WITH ADEQUATE SATS. CHRONIC COOUGH NOTED. PT DENIES BRINGING UP SPUTUM WITH COUGH. SOB WITH ACTIVITY. PLAN IS TO CONTINUE WITH BREATHING TREATMENTS AND IMPROVING ACTIVITY. WILL CONTINUE TO MONITOR AND FOLLOW WITH POC
--- NOTE | 2021-01-26 07:50 | NUR ---
PT AWAKE THIS AM. PT COUGHS WITHOUT SPUTUM PRODUCTION. ADM QUAIFENESIN AND CODEINE 5ML FOR COUGH. ALSO ADM TRAMADOL 50MG PO FOR PAIN TO LOWER LEGS OF 6 ON 1-10 SCALE. PT LUNGS SOUNDS ARE DIMINISED TO BASES. PT COUGH IS NON-PRODUCTIVE. PT IS A COMPLETE LIFT X2 PERSONS. PT DOES USE URINAL. PT STATED HE DIDN'T GET ANY SLEEP LAST NIGHT. PT OXYGEN ON 2L NC. PT WOULD LIKE CHIPS TODAY AFTER SEEING
[2021-01-26 08:09] VITALS: BP 108/53
--- NOTE | 2021-01-26 10:00 | NUR ---
PT GAVE ST A HARD TIME WHEN ASKING ORIENTATION QUESTIONS. PT EATING CHIPS AND COUGHED A COUPLE OF TIMES.
--- NOTE | 2021-01-26 16:25 | NUR ---
ASSISTED PT ON BED DIAZ TO HAVE A SMEAR OF BM. PT STATED HE HADN'T HAD A BM FOR A WEEK, PT LAST BM YESTERDAY. APPLIED LOTION TO LOWER EXT. ADM QUAIFENESIN WITH CODEINE 5ML PO FOR COUGH.
[2021-01-26 20:15] VITALS: BP 119/67
--- NOTE | 2021-01-27 03:30 | NUR ---
PATIENT HAS BEEN IN BED ALL SHIFT. HELPED PATIENT TO REPOSITION SELF FOR COMFORT NEEDED. PATIENT HAS SOFT HEEL BOOTS ON BILATERAL FEET. PATIENT HAS WOUND ON LEFT HEAL WHICH IS HEALING. PATIENT IS ON 02 NASAL CANULA AT 2L. HIS BREATHING IS NONLABORED. HIS LUNGS HAVE FAINT CRACKLES IN THE BASES. HE HAS SPORADIC NON PRODUCTIVE COUGH. PATIENT IS A/0X 2-3 AND IS FORGETFUL. HIS 02 SAT ON 2L IS AT 97%. SO FAR TONIGHT HE HAS HAD ANY PAIN OR NEEDED PAIN MEDS. PATIENT TOOK HIS MEDS WHOLE WITH WATER. PATIENT HAS BEEN VOIDING URINE USING HIS URINAL. HIS LAST BM WAS 01/26/21. BED IN LOW POSITION AND BED ALARM IS ON. CONTINUING TO MONITOR.
[2021-01-27 04:03] LABS: ABSOLUTE NEUTROPHILS 3.3 thou/uL (1.4-8.2); BASOPHILS 0.6 % (0.0-2.0); EOSINOPHILS 2.1 % (0.0-3.0); HEMATOCRIT 28.7 % (42.0-52.0); HEMOGLOBIN 9.5 gm/dL (14.0-18.0); LYMPHOCYTES 31.9 % (24.0-44.0); MCH 28.4 pg (26.0-34.0); MCHC 32.9 g/dL (28.0-37.0); MCV 86.3 fL (80.0-100.0); PLATELET COUNT 238 thou/uL (150-400); POLYS 58.4 % (36.0-66.0); RBC 3.33 mil/uL (4.50-6.00); RDW 20.2 % (10.5-14.5); WBC 5.7 thou/uL (4.0-11.0)
[2021-01-27 04:36] LABS: ALBUMIN 2.5 g/dL (3.4-5.0); CALCIUM 8.6 mg/dL (8.5-10.1); CREATININE 0.6 mg/dL (0.7-1.3); MAGNESIUM 2.1 mg/dL (1.8-2.4); POTASSIUM 4.2 mmol/L (3.5-5.1); TOTAL BILIRUBIN 0.6 mg/dL (0.2-1.0); TOTAL PROTEIN 5.7 g/dL (6.4-8.2)
[2021-01-27 08:00] VITALS: BP 97/57
--- NOTE | 2021-01-27 08:47 | NUR ---
ASSUMED CARE AT 0700. PATIENT IS ALERT AND ORIENTED 2-3. PATIENT KIM'S, COMMERCIAL REPRESENTATIVE ARE EQUAL. LUNGS ARE COARSE AND DEMINISHED. PATIENT CONTINUES ON 02 AT 2L PER N/C. PATIENT HAS NON-PRODUCTIVE COUGH. PATIENT CONTINUES ON PO COUGH SUPPRESSANT. PATIENT COTINUES ON RESPIRATORY TX. PATIENT IS MAX ASSIST OF 2 STAFF FOR TRANSFERS TO W/C. ABD IS SOFT WITH BSX4. PATIENT HAS BEEN INCONTINENT OF BM X3 THIS A.M. PATINET IS HAVING FORMED SOFT BROWN STOOLS. PATIENT VOIDING JARRETT COLORED URINE. FALL AND SAFETY PROTOCOLS IN PLACE. C/O PAIN IN HIS LEFT HEEL. LEFT HEEL PAINTED WITH BETADINE. MEDICATED WITH PRN PAIN MED. CONTINUES TO PROGRESS SLOWLY TOWARDS D/C GOALS. WILL CONTINUE TO MONITER.
--- NOTE | 2021-01-27 12:54 | NUR ---
Team meetin 2 L and with exercise 2-3 L. SOA, coughing. Heel blister. Off load heels or use of boots. max dressing for lower ext, mod assist for upper dressing. transfer max assist and unable to stand. SOA with any movement. Moderate to severe cognition and memory. Poor insight. BPCI. Little progress. Dc to skilled when medical stable.
[2021-01-27 19:03] VITALS: BP 135/80
--- NOTE | 2021-01-28 01:47 | NUR ---
ASSUMED CARE AT 1900 OF 01/27. PATIENT IS A&OX3, FORGETFUL AT TIMES. DENIES PAIN OR SHORTNESS OF BREATH. INTERMITTENT NON-PRODUCTIVE COUGH PRESENT. PRN TESSALON PERLES ADMINISTERED TO MANAGE COUGH, PATIENT REPORTS EFFECTIVENESS. ON CONTINUOUS 2L OF O2 VIA NC. PATIENT TOLERATED MEDICATIONS WHOLE, ONE AT A TIME WITH WATER. URINAL LEFT AT BEDSIDE. PRAFO BOOTS ON WHILE IN BED. FALL PRECAUTIONS IN PLACE, WILL CONTINUE TO MONITOR.
[2021-01-28 05:28] LABS: URINE BILIRUBIN NEGATIVE (Negative); URINE BLOOD NEGATIVE (Negative); URINE CLARITY CLEAR; URINE COLOR YELLOW; URINE GLUCOSE-RANDOM* NEGATIVE (Negative); URINE KETONES TRACE (Negative); URINE LEUKOCYTES-REFLEX NEGATIVE (Negative); URINE NITRITE-REFLEX NEGATIVE (Negative); URINE PROTEIN (DIPSTICK) NEGATIVE (Negative)
[2021-01-28 07:15] VITALS: BP 109/66
--- NOTE | 2021-01-28 09:08 | NUR ---
ASSUMED CARE AT 0700. PATIENT IS ALERT AND ORIENTED X2-3. PATIENT KIM'S, PURCHASING INTERN ARE EQUAL. LUNGS ARE COARSE AND DEMINISHED. PATIENT CONTINUES ON PO ABT WITHOUT ADVERSE AFFECTS. PATIENT CONTINUES ON 02 AT 2L PER N/C. PATIENT CONTINUES ON RESPIRATORY TX. PATIENT HAS NON-PRODUCTIVE COUGH. PATIENT IS UP WITH MAX ASSIST OF 2 STAFF AND GAIT BELT TO THE W/C. ABD IS SOFT WITH BSX4. PATIENT IS INCONTINENT OF URINE. PATIENT HAS LEFT HEEL WOUND. PAINTED WITH BETADINE. FALL AND SAFETY PROTOCOLS IN PLACE. DENIES PAIN AT THIS TIME. COTINUES TO PROGRESS TOWARDS D/C GOALS. WILL CONTINUE TO MONITER.
[2021-01-28] MEDS ORDERED: PREDNISONE 10 M10 M1 PO (15:08)
[2021-01-28] MEDS ORDERED: COLACE 100 MG100 MG PO (15:08)
[2021-01-28] MEDS ORDERED: MIRALAX17 GM PO (15:08)
[2021-01-28] MEDS ORDERED: PULMICORT0.5 MG/22 INH (15:08)
[2021-01-28] MEDS ORDERED: TESSALON PERLE100 MG PO (15:08)
--- NOTE | 2021-01-28 15:57 | NUR ---
called son freddy no answer, called sister hyun, left message requesting a return call back rt dcp. Referral sent to [facility], and [facility]
[2021-01-28 19:07] VITALS: BP 135/81
--- NOTE | 2021-01-29 01:54 | NUR ---
ASSUMED CARE AT 1900 OF 01/28. PATIENT IS A&O TO PERSON AND PLACE, FORGETFUL AT TIMES. CONTINUES ON 2L OF O2 VIA NC. INTERMITENT NON-PRODUCTIVE COUGH, MANAGED WITH PRN TESSALON PERLES. PRAFO BOOTS ON WHILE IN BED. ASSISTED WITH REPOSITIONING. HAD ONE EPISODE ON BLADDER INCONTINENCE, PERICARE PROVIDED AND INCONTINECE PADS CHANGED. PATIENT HAS BEEN USING URINAL INDEPENDENTLY IN BED. FALL PRECAUTIONS IN PLACE, WILL CONTINUE TO MONITOR.
[2021-01-29 08:00] VITALS: BP 168/90
--- NOTE | 2021-01-29 09:00 | NUR ---
Cm called son freddy, education on dcp and skilled referral. Ok with [facility] care [facility].
--- NOTE | 2021-01-29 09:16 | NUR ---
[facility] called they can accept for skilled rehab, donna still reviewing.
--- NOTE | 2021-01-29 10:06 | HC ---
[facility] [place] [address] CONSULTATION Name: YISEL RASCON Room #: 503-P [facility] IN M.R.#: [id number] Admission: 01/20/21 Attend Phys: Natanael Sawyer MD Discharge: Date of : 43 Report #: [id number] THIS REPORT FOR: cc: [facility] - Clinic physician unknown [facility] - Clinic physician unknown Ellis Gilman MD ~ DATE OF SERVICE: 01/22/2021 WOUND CARE CONSULTATION PERSONAL PHYSICIAN: Dr. Sawyer. CHIEF COMPLAINT: Left heel ulcer. HISTORY OF PRESENT ILLNESS: This is a 75-year-old black male who was recently hospitalized for a prolonged period of time secondary to respiratory failure with intubation and ventilator management secondary to healthcare-acquired pneumonia. During that timeframe, it is noted the patient had an ulceration on his left heel, which was also noted upon admission to the rehab unit. We have been asked to see the patient for this. The patient himself is unable to give any history at this time. Nursing staff deny any other associated wound care concerns. PAST MEDICAL HISTORY: Significant for once again the recent healthcare-acquired pneumonia with ventilator management, respiratory failure, chronic anemia, and hepatitis C. CURRENT MEDICATIONS: Multiple, I reviewed the patient's medication list. DRUG ALLERGIES: TYLENOL. SOCIAL HISTORY: The patient resides in a long-term care facility. FAMILY HISTORY AND REVIEW OF SYSTEMS: Unobtainable because of the patient's altered mental status at this time. PHYSICAL EXAMINATION: VITAL SIGNS: Stable. The patient is afebrile. GENERAL: This is alert and oriented x 2, person and place, but not time, black male who is chronically ill-appearing. HEENT: Normocephalic, atraumatic. Mucous membranes are dry. Pupils are round. Sclerae white. NECK: Without JVD. LUNGS: Clear. HEART: Regular. ABDOMEN: Soft, nontender. [facility] [address] [place] [address] CONSULTATION Name: YISEL RASCON Room #: 503-P [facility] IN [facility].#: [id number] Admission: 01/20/21 Attend Phys: Natanael Sawyer MD Discharge: Date of : 43 Report #: [id number] EXTREMITIES: The patient moves all extremities without difficulty. Evaluation of left heel reveals what appears to have been a old eschar, which we easily removed at the bedside shows intact epithelial tissue. There are no other associated ulcerations noted. Distal pulses are 1+. NEUROLOGIC: Cranial nerves 2-12 are grossly intact. Motor and sensory are grossly intact. LABORATORY DATA: White count 8.4, hemoglobin 9.4, and albumin 2.5. IMPRESSION: 1. History of unstageable decubitus ulcer, left lateral heel, now resolved. 2. History of recent respiratory failure with intubation and ventilator management secondary healthcare-acquired pneumonia. 3. Chronic anemia. 4. Protein calorie malnutrition is severe with albumin 2.5. 5. Generalized debility. PLAN: At this time, there is no dressing required to the left heel. We will just monitor the site. We have the patient to wear heel protection at all time in the bed. We will make sure we maximize the patient's oral protein supplementation for healing. We will utilize physical and occupational therapy for strengthening and continue all other current medications. Appreciate ability to consult. <ELECTRONICALLY SIGNED> By: Ellis Gilman MD 01/29/21 [id number] Ellis Gilman MD /nt
--- NOTE | 2021-01-29 17:49 | NUR ---
Pt is A & O x4. Pt VS stable. Pt received medications as ordered and also received PRN medications as requested by pt. Pt is on 2L of 02 per nasal cannula. Pt worked with PT/OT this shift. Pt is x 2 assist with ADLs and cares. Pt is incontinent at times. Pt is able to make needs known.
[2021-01-29 19:28] VITALS: BP 121/90
--- NOTE | 2021-01-29 22:53 | NUR ---
ASSUMED CARE OF PT AT 1930. PT IS A&OX4. CAN BE FORGETFUL AT TIMES. IS 2L OF O2/NC. CONTINUES WITH COUGH. APPROPRIATE MEDICATION ADMINISTERED. PT & NURSE REPORTED DENTURES ARE MISSING. STAFF IS ON LOOK OUT. PROVIDER AWARE. IS STABLE. IS UP WITH MAX ASSIST OF 2, GB, STAND PIVOT. FALL PRECAUTIONS & HOURLY ROUNDING CONTINUED THIS SHIFT. DENIES PAIN AT THIS TIME. TAKES MEDS WHOLE WITH THINS ONE AT A TIME. VOIDS PER URNINAL. USES BRIEFS DURING DAY. HEELS OFF LOADED WITH PRAFO BOOTS. HEALED BLISTER/ULCER TO LEFT HEEL. IS ABLE TO TURN SELF IN BED. IS CURRENTLY WATCHING TV. CALL LIGHT WITHIN REACH. WILL CONTINUE TO MONITOR.
[2021-01-30 08:00] VITALS: BP 127/78
--- NOTE | 2021-01-30 12:14 | NUR ---
Dc [place] [facility] # [phone] for bedside nurse to call report. Send chart copy, [id number] placed in chart copy. wheel chair with o2 [id number].
--- NOTE | 2021-01-30 13:30 | NUR ---
PT NOT WANTING TO LEAVE DUE TO HIS TEETH ARE MISSING. PT STATED THAT THE TRANSPORT W/C IS NOT HIS W/C AND THAT THE ONE THAT BELONGS TO 5N IS HIS. PT DID GET TO W/C X2 PERSON WITH OXYGEN. PT DID GET UPSET AND WAS NOT WANTING TO LEAVE, TRANSPORTATION LEFT DUE TO TIME FRAME PASSING FOR HIM TO LEAVE.
--- NOTE | 2021-01-30 17:00 | NUR ---
PT WANTED TO EAT DINNER BEFORE HE LEFT. TRANSPORTATON HERE, PT NOT READY TO LEAVE DUE TO EATING.
--- NOTE | 2021-01-30 17:30 | NUR ---
PT FINISHED EATING AND LEFT VIA W/C TO TRANSPORT VAN.
--- NOTE | 2021-01-30 18:53 | NUR ---
GAVE REPORT TO MALLY AT [facility] IN [place]. PT LEAVING VIA W/C SUJATHA.
--- NOTE | 2021-02-01 11:04 | HC ---
[facility] [place] [address] CONSULTATION Name: YISEL RASCON Room #: 503-P DIS IN M.R.#: [id number] Admission: 01/20/21 Attend Phys: Natanael Sawyer MD Discharge: 01/30/21 Date of : 43 Report #: [id number] THIS REPORT FOR: cc: [facility] - Clinic physician unknown [facility] - Clinic physician unknown Jaspal Moser PhD ~ DATE OF SERVICE: 01/25/2021 NEUROBEHAVIORAL STATUS EXAM ATTENDING PHYSICIAN: Natanael Sawyer M.D. HEEL ATTACHER WOOD: Jaspal Moser, PhD CLINICAL PRESENTATION: The patient is a 75-year-old -[place] male admitted to the [facility] for treatment of shortness of breath. He was intubated in the emergency room for acute respiratory failure, septic shock, pneumonia, COPD acute exacerbation with an underlying pulmonary fibrosis. The patient was also noted to be encephalopathic with severe pulmonary hypertension and cardiomyopathy. His assessment on admission to the rehabilitation unit is a toxic metabolic and hypoxic encephalopathy, critical illness myopathy, acute respiratory failure with intubation, 01/10/2021 through 01/15/2021, healthcare-associated pneumonia, interstitial fibrosis and COPD. A complete description of his medical condition and history can be found in his medical record. Neuropsychological consultation was requested to provide assistance in the assessment of cognitive and emotional status and provide recommendations and services. The patient stated the he was living with his son and an ex-. He has 2 children, one son about 5 years ago. The patient is a high school graduate with 1-1/2 years of college. 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 He discontinued driving several years ago because of concern about safety. TECHNIQUES UTILIZED: Clinical interview, review of medical records, staff consultation and behavioral observation, mini mental status exam 2 standard version, clock drawing. EXAMINATION FINDINGS: The patient was alert and cooperative with the assessment. He was vague in regard to the reason for his hospitalization. He reports having had frequent falls with the most recent fall sustaining a head trauma from hitting his head on a toilet bowl. The patient also reports having fallen and hitting his head on concrete. [facility] [address] [place] [address] CONSULTATION Name: YISEL RASCON Room #: 503-P [facility].#: [id number] Admission: 01/20/21 Attend Phys: Natanael Sawyer MD Discharge: 01/30/21 Date of : 43 Report #: [id number] He reports having some difficulty with word finding, which were noted during the interview. Variability with memory is also described. He was reported to have had a history of alcohol/drug abuse. The patient denies anxiety or depression. His performance on the MMSE 2 brief version was extremely low with a raw score of 9 and 16. He was 3/3 for initial registration, 3/5 for orientation to time, 3/[address] and 0/3 for immediate recall of 3 items after a brief time delay and distraction. Performance on the MMSE 2 standard version was extremely low with a raw score of 18/30. He was 2/5 for serial sevens, 2/2 for naming, 1/1 for repetition, 3/3 for comprehension. He could read and follow a single command. The patient was unable to copy a simple geometric design or write a sentence. The patient was unable to draw a clock, place the numbers and set the hands at a designated time. Suggested is visual-spatial, motor and conceptual deficits. The patient is presenting with severe deficits in cognition. Impaired immediate recall, concentration and attention and visual spatial construction are indicated. DIAGNOSTIC IMPRESSION: Major neurocognitive disorder (dementia), unspecified with Alzheimer's type features with intermittent irritability and poor insight likely in the moderate range RECOMMENDATIONS: The patient will require increased assistance in the management of medication, finances and nutrition. Further evaluation of alcohol/drug use. Redirection and distraction can be used for intermittent periods of irritability and uncooperative behavior. Alcohol should be prohibited. Thank you very much for allowing me to provide the consultation on this patient. <ELECTRONICALLY SIGNED> By: Jaspal Moser, PhD 02/01/21 [id number] Jaspal Moser, PhD /nt
--- NOTE | 2021-02-02 15:38 | PLAN ---
[facility] [place] [address] [place] [address] REHAB UNIT PLAN OF CARE Name: YISEL RASCON Room #: 503-P DIS IN M.R.#: [id number] Admission: 01/20/21 Attend Phys: Natanael Sawyer MD Discharge: 01/30/21 Date of : 43 Report #: [id number] THIS REPORT FOR: cc: [facility] - Clinic physician unknown [facility] - Clinic physician unknown Natanael Sawyer MD ~ DATE OF SERVICE: 01/23/2021 PROGRESS NOTE/OVERALL PLAN OF CARE HISTORY OF PRESENT ILLNESS: The patient seen back today in followup. He was pleasant, alert, in good spirits. Temperature 36.6, pulse 86, respirations 20, blood pressure 95/51. He was up, eating lunch. He has significant decreased range of motion of the right shoulder and abduction and I moved the tray table closer to him. He appears to have a decent appetite. He is on 2 liters nasal cannula. Pleasant, cooperative, appropriate. Transfers have been max assist squat pivot. He has been unable to ambulate. Bed mobility is mod assist. In occupational therapy, upper body dressing is min assist with lower body dressing max assist. He does have moderate to severe cognitive deficits as well as severe memory deficits. He is on a mechanical soft diet with thin liquids. ASSESSMENT: 1. Toxic metabolic/hypoxic encephalopathy. 2. Critical illness myopathy. 3. Acute respiratory failure, intubated from 01/10/2021 through 01/15/2021. 4. Healthcare-associated pneumonia. 5. Interstitial fibrosis. 6. Chronic obstructive pulmonary disease. 7. History of hepatitis C. 8. Degenerative arthritis. 9. Left heel, unstageable. PLAN: The overall plan of care is based on the preadmission screen and information garnered from therapy assessments. 1. Estimated length of stay is probably going to be fairly long as he is at a definite lower level functionally. I would say at least 14 days. 2. Medical prognosis is reasonably good. 3. Anticipated interventions includes the interdisciplinary acute inpatient rehabilitation program. 4. Anticipated functional outcomes would be for him to hopefully improve as far as basic transfers and mobility issues as well as improvement in cognition. He was premorbidly living at home with a friend in an apartment. 5. Discharge destination would be hopefully to return back home with a friend, although we are going to need to look at additional assistance as it is indicated. Per case management, he is living with his son and there is an ex- that is involved as well as a sister. [address] [address] REHAB UNIT PLAN OF CARE Name: YISEL RASCON Room #: 503-P DIS IN M.R.#: [id number] Admission: 01/20/21 Attend Phys: Natanael Sawyer MD Discharge: 01/30/21 Date of : 43 Report #: [id number] 6. Expected therapy by discipline includes PT, OT and speech 1 hour per day each 5 days a week throughout the duration of the acute inpatient rehabilitation stay. ADDENDUM: The patient's prognosis for significant practical improvement within a reasonable period of time appears good. Given the patient's complex medical condition and risk of further medical complication, rehabilitation services could not be safely provided at a lower level of care such as a jail facility. <ELECTRONICALLY SIGNED> By: Natanael Sawyer MD 02/02/21 1538 [id number] Natanael Sawyer MD /nt
--- NOTE | 2021-02-02 15:38 | H ---
[facility] [place] [address] HISTORY AND PHYSICAL Name: YISEL RASCON Room #: 503-P DIS IN M.R.#: [id number] Admission: 01/20/21 Attend Phys: Natanael Sawyer MD Discharge: 01/30/21 Date of : 43 Report #: [id number] THIS REPORT FOR: cc: [facility] - Clinic physician unknown [facility] - Clinic physician unknown Natanael Sawyer MD ~ HISTORY AND PHYSICAL/POST-ADMISSION PHYSICIAN EVALUATION HISTORY OF PRESENT ILLNESS: The patient is a 75-year-old -[place] male who was originally admitted to [facility] on 01/09/2021 with worsening shortness of air. He was intubated in the Emergency Room for acute respiratory failure, septic shock, pneumonia, COPD acute exacerbation. He has underlying pulmonary fibrosis. Negative test for COVID-19. He was extubated on 01/15/2021 and is on nasal cannula O2. He has been on a steroid taper, antibiotics, nebulizer treatments. He is also noted to have severe pulmonary hypertension and cardiomyopathy. He has encephalopathy and has generalized debilitation and the encephalopathy is thought to be multifactorial with toxic metabolic and hypoxic component. He also has a critical illness myopathy and was intubated from 01/10/2021 to 01/15/2021. He has now been admitted for acute in-hospital inpatient rehabilitation. PAST MEDICAL HISTORY: As noted above. He has history of hepatitis C, back surgery, cholecystectomy, right stent placed, cystoscopy, right ureteroscopy, laser ureteroscopy, lithotripsy. MEDICATIONS: Please see the full medication listing. SOCIAL HISTORY: He was living at home with a friend in an apartment 1-step, was independent with ADLs and IADLs. Uses no assistive device. Was not on home O2. ALLERGIES: TYLENOL. REVIEW OF SYSTEMS: No current complaints of chest pain, shortness of breath or abdominal discomfort. PHYSICAL EXAMINATION: GENERAL: On examination, he is alert, some latency to his responses, can follow basic 1-step commands, is on nasal cannula O2. CHEST: Decreased breath sounds. CARDIAC: Sounded regular rate and rhythm. He is of slender build. ABDOMEN: Bowel sounds positive, nontender. GENITOURINARY AND RECTAL: Deferred. EXTREMITIES: He has functional range of motion of both upper extremities with some stiffness, mild tremor, arthritic changes in his hands. Upper extremity strength is probably grade 3+/5. Lower extremities is probably 3+/5. No focal [facility] [address] [place] [address] HISTORY AND PHYSICAL Name: YISEL RASCON Room #: 503-P [facility] [place] ..#: [id number] Admission: 01/20/21 Attend Phys: Natanael Sawyer MD Discharge: 01/30/21 Date of : 43 Report #: [id number] calf swelling. He has been needing assistance as far as basic transfers at a max assist level. ASSESSMENT: A 75-year-old -Mac[place] male with the following problem list: 1. Toxic metabolic along with hypoxic encephalopathy. 2. Critical illness myopathy. 3. Acute respiratory failure with intubation 01/10/2021 through 01/15/2021. 4. Healthcare-associated pneumonia. 5. Interstitial fibrosis. 6. Chronic obstructive pulmonary disease. PLAN: The patient is admitted for acute in-hospital inpatient rehabilitation. As far as risk of complications, he does have the above noted medical comorbidities and is at risk for falls, skin breakdown. Initial plan of care involves the interdisciplinary acute inpatient rehabilitation program. Measurable functional goals would be for the patient to become modified independent with transfers, mobility and ADLs and to improve as far as cognition, so that he can hopefully return back to his prior living situation. Prognosis is reasonably good. Estimated length of stay probably around 14 days. Potential barriers would include his multiple medical comorbidities and decreased functional status. The patient's diagnosis is appropriate for acute inpatient rehabilitation. He meets the medical necessity criteria. He does have the tolerance for therapies and has appropriate discharge goals back to the home setting. <ELECTRONICALLY SIGNED> By: Natanael Sawyer MD 02/02/21 1538 5 0 Natanael Sawyer MD /nt
--- NOTE | 2021-02-09 16:01 | NUR ---
demarcus spoke with ozzie sister hyun via phone call, , she was want to know how to reach at [facility] about getting ozzie appointment to get dentures. DEMARCUS passed along that if terrence gets bill for dentures forward the bill to [facility] risk department. thank you for checking and calling me, i am guess if dentist cant just call nilsa at [facility] then i will have to pay and then send copy of bill to [facility]. thank you again per hyun. Demarcus passed on information to [facility] that his sister would like a call from their delinquency prevention social worker.
== END 2021-01-30 18:02 | DRG 91 ==
PROVIDERS: Nurse Practitioner; Nurse Practitioner Family; Specialist; ADMIT Physical Medicine & Rehabilitation; ATTEND Physical Medicine & Rehabilitation
PROC: 05HY33Z Insertion of Infusion Device into Upper Vein, Percutaneous Approach (ICD-10-PCS; principal; 2021-01-20)
PROC: 0T9B70Z Drainage of Bladder with Drainage Device, Via Natural or Artificial Opening (ICD-10-PCS; principal; 2021-01-20)
DX: G92.8 Other toxic encephalopathy (principal); J96.00 Acute respiratory failure, unspecified whether with hypoxia or hypercapnia; J18.9 Pneumonia, unspecified organism; R65.21 Severe sepsis with septic shock; A41.9 Sepsis, unspecified organism; E43 Unspecified severe protein-calorie malnutrition; G72.81 Critical illness myopathy; G93.1 Anoxic brain damage, not elsewhere classified; B37.0 Candidal stomatitis; J44.0 Chronic obstructive pulmonary disease with (acute) lower respiratory infection; I42.9 Cardiomyopathy, unspecified; D64.9 Anemia, unspecified; D69.6 Thrombocytopenia, unspecified; M19.90 Unspecified osteoarthritis, unspecified site; F01.50 Vascular dementia, unspecified severity, without behavioral disturbance, psychotic disturbance, mood disturbance, and anxiety; I27.20 Pulmonary hypertension, unspecified; G30.9 Alzheimer's disease, unspecified; F02.80 Dementia in other diseases classified elsewhere, unspecified severity, without behavioral disturbance, psychotic disturbance, mood disturbance, and anxiety; R53.81 Other malaise; L89.620 Pressure ulcer of left heel, unstageable; I50.9 Heart failure, unspecified; Z86.19 Personal history of other infectious and parasitic diseases; Z87.442 Personal history of urinary calculi; Z88.8 Allergy status to other drugs, medicaments and biological substances; Z90.49 Acquired absence of other specified parts of digestive tract; Z68.20 Body mass index [BMI] 20.0-20.9, adult
CPT/HCPCS: 10112

== ENCOUNTER → 2021-03-25 | Outpatient (CLI) | payer OTHER ==
[~2021-03-25] MED LIST changes: +PULMICORT0.5 MG/22 INH
== END ==
LOC: RAD 13:35
PROVIDERS: ATTEND Internal Medicine Pulmonary Disease
DX: J69.0 Pneumonitis due to inhalation of food and vomit (principal); R91.8 Other nonspecific abnormal finding of lung field